=== PATIENT | female | born 1990 | race Caucasian/White ===

== ENCOUNTER 2018-09-08 09:57 | Day surgery (SDC) | payer MEDICAID ==
[2018-09-08] MEDS ORDERED: ceFAZolin 2 GM/50 ML 2 GM/50 ML BAG IV ONE (10:04)
--- NOTE | 2018-09-08 10:45 | ANESTHESIA ---
Pre-Anesthesia VS, & Labs - Diagnosis developmental odontogenic cyst - Procedure Excision of benighn tumor/cyst of right mandible, bone graft, mandible Vital Signs: Temp Pulse Resp BP Pulse Ox 37.5 C 64 16 126/71 100 09/08/18 10:24 09/08/18 10:24 09/08/18 10:24 09/08/18 10:24 09/08/18 10:24 Height 5 ft 7 in Weight (kg) 67 kg - NPO >8 hours - Is Patient ?: No - Lab Results Lab results reviewed: Yes Anes History & Medical History - Anesthetic History Anesthesia Complications: reports: No previous complications - Medical History Cardiovascular: reports: None Pulmonary: reports: None Gastrointestinal: reports: None Urinary: reports: None Neuro: reports: None Musculoskeletal: reports: None Endocrine/Autoimmune: reports: None Blood Disorders: reports: None Skin: reports: None Smoking Status: Never smoker Psychosocial: reports: No issues indicated - Surgical History Eyes Ears Nose Throat (EENT): Other (Dental surgery) Exam General: Alert, Oriented x3, Cooperative, No acute distress Dental: WNL Mouth Openin Fingerbreadth Neck Mobility: Normal Mallampati classification: II Thyromental Distance: 4-6 cm Respiratory: Lungs clear, Normal breath sounds, No respiratory distress, No acc essory muscle use Cardiovascular: Regular rate, Normal S1, Normal S2, No murmurs Mental/Cognitive Status: Alert/Oriented X3, Normal for patient Plan Anesthesia Type: General Consent for Procedure(s) Verified and Reviewed: Yes Code Status: Attempt Resuscitation ASA classification: 2-Mild systemic disease Is this case an emergency?: No
[2018-09-08] MEDS ORDERED: LACTATED RINGERS 1,000 ML IV ONE ×2 (10:49→14:22)
[2018-09-08] MEDS ORDERED: SCOPOLAMINE PATCH TOP ONE (10:56)
[2018-09-08] MEDS ORDERED: OXYMETAZOLINE NASAL SPRAY NAS ONE ×3 (11:04→12:12)
[2018-09-08] MEDS ORDERED: BACITRACIN OINT TOP ONE (11:07)
[2018-09-08] MEDS ORDERED: LIDOCAINE MPF 2%-EPI 1:200000 20 ML VIAL ONE (11:07)
[2018-09-08] MEDS ORDERED: LIDOCAINE JELLY 2% 30 ML TUBE TOP ONE (11:12)
[2018-09-08] MEDS ORDERED: CHLORHEXIDINE GLUCONATE 15 ML UDC PO ONE ×2 (11:13→12:10)
[2018-09-08 11:32] LABS: HCG UR QUAL NEGATIVE
[2018-09-08 11:34] LABS: BASOPHILS % (AUTO) 0.8 %; EOSINOPHILS # (AUTO) 0.1 10^3/uL (0.0-0.7); EOSINOPHILS % (AUTO) 1.3 %; HGB - HEMOGLOBIN 14.2 g/dL (12.0-16.0); LYMPHOCYTES # (AUTO) 1.5 10^3/uL (1.5-3.5); LYMPHOCYTES % (AUTO) 28.4 %; MEAN CORPUSCULAR HEMOGLOBIN 31.3 pg (27.0-31.0); MEAN CORPUSCULAR HGB CONC 34.2 g/dL (32.0-36.0); MEAN CORPUSCULAR VOLUME 91.5 fL (81.0-99.0); MEAN PLATELET VOLUME 9.4 fL (7.9-10.8); MONOCYTES # (AUTO) 0.4 10^3/uL (0.0-1.0); MONOCYTES % (AUTO) 6.8 %; NEUTROPHILS # (AUTO) 3.3 10^3/uL (1.5-6.6); NEUTROPHILS % (AUTO) 62.7 %; PLT - PLATELET COUNT 193 10^3/uL (130-450); RED BLOOD COUNT 4.55 10^6/uL (4.20-5.40); RED CELL DISTRIBUTION WIDTH 13.4 % (12.0-15.0); WHITE BLOOD COUNT 5.2 x10^3/uL (4.8-10.8)
[2018-09-08] MEDS ORDERED: BUPIVACAINE 0.5% PF 30 ML VIAL INFIL ONE ×2 (12:09)
[2018-09-08] MEDS ORDERED: LIDOCAINE 2%-EPI 1:100000 20 ML MDV SUBQ ONE (12:10)
[2018-09-08] MEDS ORDERED: BACITRACIN ZINC OINT 15 GM TOP ONE (12:12)
[2018-09-08] MEDS ORDERED: BALANCED SALT OPHTHALMIC SOL 120 ML BOTTLE EACHEYE ONE (12:12)
[2018-09-08] MEDS ORDERED: DEXAMETHASONE 4 MG/ML VIAL IVP ONE (13:55)
[2018-09-08] MEDS ORDERED: ONDANSETRON 4 MG/2 ML VIAL IVP ONE (13:55)
[2018-09-08] MEDS ORDERED: PROPOFOL 200 MG/20 ML VIAL IVP ONE (13:55)
[2018-09-08] MEDS ORDERED: fentaNYL 250 MCG/5 ML VIAL IVP ONE (13:55)
[2018-09-08] MEDS ORDERED: LIDOCAINE-MPF 2% 5 ML VIAL IM ONE (13:55)
[2018-09-08] MEDS ORDERED: KETOROLAC 30 MG/ML VIAL IVP ONE (13:55)
[2018-09-08] MEDS ORDERED: MIDAZOLAM 2 MG/2 ML VIAL IVP ONE (13:55)
[2018-09-08] MEDS ORDERED: ROCURONIUM 50 MG/5 ML VIAL IVP ONE (13:55)
[2018-09-08] MEDS ORDERED: ACETAMINOPHEN 1,000 MG/100 ML 100 ML IV ONE (13:55)
[2018-09-08] MEDS ORDERED: HYDROcod/ACETAM 10 MG/325 MG TABLET PO PRN (14:23)
[2018-09-08] MEDS ORDERED: ONDANSETRON 4 MG/2 ML VIAL IVP PRN (14:23)
[2018-09-08 16:15] VITALS: BP 119/62
--- NOTE | 2018-09-09 11:49 | OPERATIVE REPORT ---
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 PROCEDURES PERFORMED 1. Removal of 4 cm odontogenic keratocyst from the right mandible via an intraoral approach with a peripheral ostectomy and removal of the lateral cortex of the mandible. 2. Reconstruction of the right mandibular defect with a combination of bone marrow aspirate from the right iliac crest and banked bone. PRIMARY SURGEON: Danilo Cassidy DDS ATTORNEY AT LAW: Larry Lamar CRNA ANESTHESIA TYPE: General anesthesia via nasoendotracheal intubation. IMPLANTS: None. SPECIMENS: Odontogenic keratocyst was removed in 2 pieces and submitted to Pathology for microscopic evaluation. ESTIMATED BLOOD LOSS: 50 mL INDICATIONS FOR PROCEDURE: The patient is a 28-year-old female who presented to my office with facial swelling, and radiographic examination showed a radiolucent lesion of the right mandible. After a biopsy was taken, the lesion was found to be an odontogenic keratocyst. It was multiloculated and associated with impacted wisdom tooth #32. At the time of the biopsy, the wisdom tooth was removed. It was decided that complete removal of the cyst with a thorough peripheral ostectomy was indicated to prevent recurrence of the cyst. It was also deemed likely that tooth #31 would need to be removed. PROCEDURE IN DETAIL: The risks, benefits, and alternatives of the procedure were discussed with the patient including high likelihood for recurrence, the need for further surgeries, failure of the bone graft, jaw fracture, permanent numbness of the lip, chin or tongue, damage to the lingual nerve, infection and change in cosmesis. The patient was brought to the main operating room and placed in a supine position on the operating table. General anesthesia was induced by the anesthesia team and the airway was secured with a nasoendotracheal tube via the left naris. The tube was secured to the forehead in the usual fashion. The eyes were taped. All pressure points were padded and checked, and the patient was prepped and draped in a standard sterile fashion for an intraoral surgical procedure. Attention was first directed actually to the right anterior iliac crest. The site was prepped and draped in standard fashion for obtaining a bone graft. A stab incision with a #15 blade was made 2 cm posterior to the skin overlying the anterior iliac crest, and then that incision was retracted anteriorly so that it was overlying the anterior iliac crest. Using the [employer] bone marrow aspiration system, a needle was introduced into the marrow space of the iliac crest, and bone marrow aspirate was obtained at a volume of 30 mL. Pressure was held on the site to assure good hemostasis, and then the site was irrigated and closed with 4-0 Vicryl sutures for the deep layers and 5-0 Prolene sutures for the superficial layers. Attention was redirected back up to the right mandible. A throat pack was placed. The mouth was cleansed with chlorhexidine mouth rinse, and the teeth were brushed. Local anesthesia was achieved with 2% lidocaine with 1:100,000 epinephrine x5 mL. An incision was made over the right angle extending up the ramus. Obwegeser retractors were used to retract, and a #9 periosteal elevator was used to dissect in a subperiosteal plane, granting excellent visualization of the entire lateral aspect of the right mandibular angle and most of the ramus up to the coronoid notch. At this point, a round bur was used to unroof the cyst. The unroofing was performed on the lateral plate only, and the lingual soft tissues were protected with a Seldin retractor. After the lesion was adequately reduced, it was bisected, to ease removal, and then removed in 2 pieces; the one posterior piece that went up into the ramus, and the second more anterior piece being the one that plunged down into the old extraction site and plunged down towards the nerve. The piece that evert up into the ramus was easy to remove, but the piece that plunged down near the nerve had several small loculations, and while it was easy to remove, it was clearly more invasive into the bone and more loculated and thus seemed more likely to recur. It was now time for peripheral ostectomy. This was performed with a football bur under direct visualization of all aspects of the bony cavity. Thankfully, the lingual plate was mostly allowed to remain intact after the surgery. It was also necessary to remove some bone covering the inferior alveolar nerve, but the inferior alveolar nerve itself could remain intact. A large swath of well healed and unaffected bone was observed posterior to tooth #31, so it was deemed unnecessary to remove the tooth. Once this was done, the entire surgical area was irrigated copiously, and the bone was smoothed. The bone graft material was then prepared and placed into the site for a total of 6 mL. It was packed into the site, and a 4-0 Vicryl suture was used to reapproximate the soft tissues in an interrupted and running fashion. The patient's mouth was cleansed of debris. The throat pack was removed. The bite block was removed. The patient was extubated and emerged from anesthesia uneventfully. The eyes were rinsed with BSS prior to emergence from anesthesia. The patient was transferred to the PACU in stable condition and discharged to home the same night. COMPLICATIONS: None. TD: 09/09/2018 09:08 DANE
== END 2018-09-08 09:58 | disposition home or self-care (01) ==
LOC: SDS 09:57
PROVIDERS: ATTEND Dentist Oral and Maxillofacial Surgery
PROC: 0NBT0ZZ Excision of Right Mandible, Open Approach (ICD-10-PCS; principal; 2018-09-08 11:00)
PROC: 0NRT07Z Replacement of Right Mandible with Autologous Tissue Substitute, Open Approach (ICD-10-PCS; 2018-09-08 11:00)
DX: D16.5 Benign neoplasm of lower jaw bone (principal)
CPT/HCPCS: 21046; 21215; 81025; 85025; A9270; J0131; J0690; J3010; J3490; J7120

== ENCOUNTER 2021-07-29 07:08 | Day surgery (SDC) | payer OTHER ==
[~2021-07-29 07:08] MED LIST: BACITRACIN ZINC OINT 1 PACKET TOP ONE; BUPIVACAINE 0.25% PF 30 ML VIAL ONE; EPINEPHrine 1 MG/ML AMP ONE; LIDOCAINE 2%-EPI 1:100000 20 ML MDV ONE
[2021-07-29] MEDS ORDERED: CHLORHEXIDINE GLUCONATE 15 ML UDC PO ONE ×2 (07:13→08:03)
[2021-07-29] MEDS ORDERED: PROPOFOL 200 MG/20 ML VIAL IVP ONE ×2 (07:16→10:22)
[2021-07-29] MEDS ORDERED: ROCURONIUM 50 MG/5 ML VIAL ONE (07:16)
[2021-07-29] MEDS ORDERED: LIDOCAINE-MPF 2% 5 ML VIAL ONE (07:16)
[2021-07-29] MEDS ORDERED: fentaNYL 100 MCG/2 ML VIAL ONE ×2 (07:17→10:06)
[2021-07-29] MEDS ORDERED: MIDAZOLAM 2 MG/2 ML VIAL ONE (07:17)
[2021-07-29] MEDS ORDERED: LIDOCAINE JELLY 2% 6 ML JEL.PF.APP ONE (07:22)
[2021-07-29] MEDS ORDERED: OXYMETAZOLINE HCL 100 SPRAYS BOTTLE ONE (07:22)
[2021-07-29 07:24] LABS: HCG UR QUAL NEGATIVE
[2021-07-29] MEDS ORDERED: LACTATED RINGERS 1,000 ML IV ONE ×2 (07:24→10:08)
--- NOTE | 2021-07-29 07:45 | ANESTHESIA ---
Pre-Anesthesia VS, & Labs - Diagnosis mandible fracture - Procedure ORIF mandible fracture Vital Signs: Temp Pulse Resp BP Pulse Ox 36.8 C 74 18 120/58 L 96 07/29/21 07:25 07/29/21 07:25 07/29/21 07:25 07/29/21 07:25 07/29/21 07:25 Height: 5 ft 7 in Weight (kg): 79.5 kg Body Mass Index: 27.4 BMI Classification: Overweight - NPO >8 hours - Is Patient ?: No Home Medications and Allergies No Known Home Medications 09/08/18 Allergies/Adverse Reactions: Allergies Allergy/AdvReac Type Severity Reaction Status Date / Time cat dander AdvReac Mild Unknown Verified 09/08/18 10:51 dog dander AdvReac Unknown Verified 09/08/18 10:51 dust AdvReac Unknown Uncoded 09/08/18 11:04 Anes History & Medical History - Anesthetic History Anesthesia Complications: reports: Post-Operative Nausea/Vomiting - Medical History Cardiovascular: reports: None Pulmonary: reports: None Gastrointestinal: reports: None Urinary: reports: None Neuro: reports: None Musculoskeletal: reports: None Endocrine/Autoimmune: reports: None Blood Disorders: reports: None Skin: reports: None Smoking Status: Never smoker - Surgical History Eyes Ears Nose Throat (EENT): reports: Other (cyst from mandible) Exam General: Alert, Oriented x3 Dental: WNL Mouth Opening: Greater than 4 Fingerbreadths Neck Mobility: Normal Mallampati classification: I Thyromental Distance: greater than 6 cm Respiratory: Lungs clear Cardiovascular: Regular rate Plan Anesthesia Type: General Consent for Procedure(s) Verified and Reviewed: Yes Code Status: Attempt Resuscitation ASA classification: 1-Healthy patient Is this case an emergency?: No
[2021-07-29] MEDS ORDERED: BACITRACIN ZINC OINT 14 GM TOP ONE (08:03)
[2021-07-29] MEDS ORDERED: EPINEPHrine 1 MG/ML AMP IR ONE (08:04)
[2021-07-29] MEDS ORDERED: ONDANSETRON 4 MG/2 ML VIAL IVP PRN ×2 (08:08→10:12)
[2021-07-29] MEDS ORDERED: MORPHINE 2 MG/ML CARPUJECT IVP PRN ×2 (08:08→10:12)
[2021-07-29] MEDS ORDERED: ATROPINE ABBOJECT 1 MG/10 ML SYRINGE IVP PRN (08:08)
[2021-07-29] MEDS ORDERED: ePHEDrine 50 MG/ML VIAL IVP PRN (08:08)
[2021-07-29] MEDS ORDERED: fentaNYL 100 MCG/2 ML VIAL IVP PRN (08:08)
[2021-07-29] MEDS ORDERED: NALOXONE 0.4 MG/ML VIAL IVP PRN (08:08)
[2021-07-29] MEDS ORDERED: METOCLOPRAMIDE 10 MG/2 ML VIAL IVP PRN (08:08)
[2021-07-29] MEDS ORDERED: SCOPOLAMINE PATCH TOP ONE (08:11)
[2021-07-29] MEDS ORDERED: ONDANSETRON 4 MG/2 ML VIAL ONE (09:00)
[2021-07-29] MEDS ORDERED: DEXAMETHASONE 4 MG/ML VIAL ONE (09:00)
[2021-07-29] MEDS ORDERED: LACTATED RINGERS 1,000 ML IV SCH (09:00)
[2021-07-29] MEDS ORDERED: ACETAMINOPHEN 1,000 MG/100 ML 100 ML IV ONE (09:00)
[2021-07-29] MEDS ORDERED: SCOPOLAMINE PATCH TOP SCH (09:00)
[2021-07-29] MEDS ORDERED: LIDOCAINE 2%-EPI 1:100000 20 ML MDV SUBQ ONE (10:01)
[2021-07-29] MEDS ORDERED: KETOROLAC 30 MG/ML VIAL ONE (10:09)
[2021-07-29] MEDS: HYDROmorphone 0.5 MG/0.5 ML SYRINGE IVP PRN ×5 (10:14→10:35)
[2021-07-29] MEDS ORDERED: HYDROmorphone 1 MG/ML CARPUJECT ONE (10:14)
--- NOTE | 2021-07-29 11:46 | ANESTHESIA POST OP EVALUATION ---
Anesthesia Post Eval - Post Anesthesia Eval Vitals: Last Vital Signs Temp 36.6 C 07/29/21 10:50 Pulse 67 07/29/21 11:15 Resp 20 07/29/21 11:15 BP 113/72 07/29/21 11:15 Pulse Ox 100 07/29/21 11:15 CV Function Including HR & BP: Stable Pain Control: Satisfactory Nausea & Vomiting: Negative Mental Status: Baseline Respiratory Status: Airway Patent Hydration Status: Satisfactory Anesthesia Complications: None
[2021-07-29 12:08] VITALS: BP 120/74
--- NOTE | 2021-07-29 17:34 | OPERATIVE REPORT ---
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 Ostectomy of the surrounding bone Bone graft reconstruction, autogenous bone. Post Op Diagnosis: Recurrent [place] of the R mandibular ramus - Procedure Note Primary Surgeon: Danilo Cassidy Anesthesia Provider: Skyla Judge Anesthesia Technique: General ET tube Pathology: A single specimen from the R mandible was sent in formalin. Estimated Blood Loss (mL): 5 Indications: Tiffanie is a 31-year-old female with a history of removal of odontogenic keratocyst from the right mandible. She has been monitored every 6 months but she presented to the clinic most recently with swelling pain and drainage from the right mandible where the lesion was previously removed. This combined with the radiographic cupping appearance of the ascending ramus was consistent with an odontogenic keratocyst. It was decided that removal of the cyst as well as a significant amount of the surrounding bone was indicated to prevent recurrence. The risks benefits and alternatives of this plan were discussed including pain, swelling, bleeding, nerve damage, jaw fracture, recurrence of the cyst, need for further surgeries, nerve damage with lingual nerve paresthesia. Adequate time was given to answer all questions and informed consent was obtained. Findings: the patient was brought to the main operating room and placed in a supine position on the operating table. General anesthesia was induced by the anesthesia team and the airway was secured with a nasoendotracheal tube. The tube was secured to the forehead in the usual fashion. The eyes were protected with Tegaderms. The patient was prepped and draped in the standard sterile fashion for an intraoral surgical procedure. Local anesthesia was achieved with 2% lidocaine with 1 200,000 epinephrine 6 mL. A formal timeout was executed. The mouth was rinsed with chlorhexidine mouth rinse the a single throat pack was placed. Attention was directed to the right mandible with a bite block opening holding open the bite. A [place] tip Bovie was used to make an incision around the fistula where the cyst was draining into the mouth. About 1 cc of thick keratin was expressed during this part of the procedure. The incision was carried down to bone taking care to be conservative on the lingual so as to avoid lingual nerve injury. Subperiosteal dissection was performed with a buccal flap and a conservative lingual flap. The cyst was then removed as part of the fistula. Around bur that was then used to remove bone around of the cyst including cortical and cancellus bone but with increased aggressive nests of the cancellus bone leaving a canoe-shaped defect to allow for retention of a bone graft. DBM bone graft was placed into the site. Soft tissues were reapproximated over the site using 4-0 Vicryl sutures in an interrupted and running fashion. The mouth was rinsed free of debris. The throat pack was removed. The oropharynx was suctioned. The care of the patient was returned to the anesthesia staff. The patient was extubated and emerged from anesthesia without complication. Thorough transferred to the PACU in stable condition. Complications: None
== END 2021-07-29 07:09 | disposition home or self-care (01) ==
LOC: SDS 07:08
PROVIDERS: ATTEND Dentist Oral and Maxillofacial Surgery
PROC: 0NBT0ZZ Excision of Right Mandible, Open Approach (ICD-10-PCS; principal; 2021-07-29 08:00)
DX: K09.0 Developmental odontogenic cysts (principal)
CPT/HCPCS: 21046; 21215; 81025; A9270; C1713; J0131; J1170; J3490; J7120